=== PATIENT | male | born 1930 | race American Indian/Alaskan Native ===

== ENCOUNTER 2020-09-06 10:15 | Emergency (ER) | payer MEDICARE ==
--- NOTE | 2020-09-06 11:14 | Emergency Department Report ---
ED General Adult HPI - General Chief complaint: Sore Throat Stated complaint: CONGESTION Time Seen by Provider: 09/06/20 10:58 Source: EMS Mode of arrival: Stretcher Limitations: Altered Mental Status - History of Present Illness Initial comments: The patient presents to the emergency department from [facility] for evaluation of aspiration. Upon the patient's arrival to the emergency department I contacted care home and spoke to the patient's nurse who informed me that the patient has been switched from a regular diet to mechanical yesterday due to difficulty swallowing. They went to process of trying to get a swallow eval done when he was counseled. Patient was brought to the ED for evaluation of aspiration. Due to the patient's dementia is not able to answer questions. -: Sudden Severity scale (0 -10): 0 Consistency: constant Improves with: none Worsens with: none Associated Symptoms: denies other symptoms Treatments Prior to Arrival: none - Related Data Home Medications Medication Instructions Recorded Confirmed Last Taken Ascorbic Acid [Vitamin C] 500 mg PO DAILY 09/06/20 09/06/20 Unknown AtorvaSTATin [Lipitor] 10 mg PO QHS 09/06/20 09/06/20 Unknown Cholecalciferol Vit D3 [Vitamin D3 1,000 unit PO QDAY 09/06/20 09/06/20 Unknown 1,000 UNIT TAB] Doxycycline Hyclate [Doxycycline 100 mg PO DAILY 09/06/20 09/06/20 Unknown Hyclate TAB] Fluticasone [Flonase] 1 spray NS QDAY 09/06/20 09/06/20 Unknown QUEtiapine [SEROquel] 50 mg PO DAILY 09/06/20 09/06/20 Unknown Tamsulosin [Flomax] 0.4 mg PO QDAY 09/06/20 09/06/20 Unknown VALPROIC ACID Liq [DepaKENE Liq] 250 mg PO DAILY 09/06/20 09/06/20 Unknown Previous Rx's Medication Instructions Recorded Last Taken Type levoFLOXacin [Levofloxacin] 250 mg PO DAILY #150 solution 09/06/20 Unknown Rx Allergies Allergy/AdvReac Type Severity Reaction Status Date / Time No Known Allergies Allergy Unverified 09/06/20 10:46 ED Review of Systems ROS: Stated complaint: CONGESTION Other details as noted in HPI Comment: Unobtainable due to pts medical conditions ED Past Medical Hx - Past Medical History Hx Dementia: Yes - Social History Smoking Status: Smoker, Current Status Unknown - Medications Home Medications: Home Medications Medication Instructions Recorded Confirmed Last Taken Type Ascorbic Acid [Vitamin C] 500 mg PO DAILY 09/06/20 09/06/20 Unknown History AtorvaSTATin [Lipitor] 10 mg PO QHS 09/06/20 09/06/20 Unknown History Cholecalciferol Vit D3 [Vitamin D3 1,000 unit PO QDAY 09/06/20 09/06/20 Unknown History 1,000 UNIT TAB] Doxycycline Hyclate [Doxycycline 100 mg PO DAILY 09/06/20 09/06/20 Unknown History Hyclate TAB] Fluticasone [Flonase] 1 spray NS QDAY 09/06/20 09/06/20 Unknown History QUEtiapine [SEROquel] 50 mg PO DAILY 09/06/20 09/06/20 Unknown History Tamsulosin [Flomax] 0.4 mg PO QDAY 09/06/20 09/06/20 Unknown History VALPROIC ACID Liq [DepaKENE Liq] 250 mg PO DAILY 09/06/20 09/06/20 Unknown History levoFLOXacin [Levofloxacin] 250 mg PO DAILY #150 solution 09/06/20 Unknown Rx ED Physical Exam - General Limitations: Altered Mental Status General appearance: alert, in no apparent distress, other (Demented) - Head Head exam: Present: atraumatic, normocephalic - Eye Eye exam: Present: normal appearance - ENT ENT exam: Present: mucous membranes moist, other (The patient is producing a significant amount of secretions) - Neck Neck exam: Present: normal inspection - Respiratory Respiratory exam: Present: normal lung sounds bilaterally. Absent: respiratory distress - Cardiovascular Cardiovascular Exam: Present: regular rate, normal rhythm. Absent: systolic murmur, diastolic murmur, rubs, gallop - GI/Abdominal GI/Abdominal exam: Present: soft, normal bowel sounds. Absent: distended, tenderness - Rectal Rectal exam: Present: deferred - Extremities Exam Extremities exam: Present: normal inspection - Back Exam Back exam: Present: normal inspection - Neurological Exam Neurological exam: Present: alert - Psychiatric Psychiatric exam: Present: normal affect, normal mood - Skin Skin exam: Present: warm, dry, intact, normal color. Absent: rash ED Course Vital Signs 09/06/20 09/06/20 09/06/20 10:32 10:44 11:52 Temperature 98.2 F Pulse Rate 74 81 Respiratory 20 20 18 Rate Blood Pressure 156/89 Blood Pressure 159/90 [Left] O2 Sat by Pulse 94 98 Oximetry 09/06/20 13:03 Temperature Pulse Rate 80 Respiratory 20 Rate Blood Pressure Blood Pressure 157/82 [Left] O2 Sat by Pulse 99 Oximetry ED Medical Decision Making - Lab Data Result diagrams: 09/06/20 13:24 09/06/20 13:24 Lab Results 09/06/20 09/06/20 09/06/20 Range/Units 13:24 13:24 13:24 WBC 5.2 (4.5-11.0) K/mm3 RBC 4.75 (3.65-5.03) M/mm3 Hgb 11.8 (11.8-15.2) gm/dl Hct 37.6 (35.5-45.6) % MCV 79 L (84-94) fl MCH 25 L (28-32) pg MCHC 32 (32-34) % RDW 19.0 H (13.2-15.2) % Plt Count 85 L (140-440) K/mm3 Lymph % (Auto) 15.4 (13.4-35.0) % [place] % (Auto) 4.9 (0.0-7.3) % Eos % (Auto) 0.8 (0.0-4.3) % Baso % (Auto) 0.6 (0.0-1.8) % Lymph # (Auto) 0.8 L (1.2-5.4) K/mm3 [place] # (Auto) 0.3 (0.0-0.8) K/mm3 Eos # (Auto) 0.0 (0.0-0.4) K/mm3 Baso # (Auto) 0.0 (0.0-0.1) K/mm3 Seg Neutrophils % 78.3 H (40.0-70.0) % Seg Neutrophils # 4.1 (1.8-7.7) K/mm3 Sodium 153 H (137-145) mmol/L Potassium 3.9 (3.6-5.0) mmol/L Chloride 114.9 H (98-107) mmol/L Carbon Dioxide 32 H (22-30) mmol/L Anion Gap 10 mmol/L BUN 35 H (9-20) mg/dL Creatinine 1.4 H (0.8-1.3) mg/dL Estimated GFR 58 ml/min BUN/Creatinine Ratio 25 % Glucose 72 L (75-100) mg/dL Lactic Acid 1.50 (0.7-2.0) mmol/L Calcium 9.3 (8.4-10.2) mg/dL Total Bilirubin 0.30 (0.1-1.2) mg/dL AST 41 H (5-40) units/L ALT 37 (7-56) units/L Alkaline Phosphatase 137 H (35-129) units/L Total Protein 7.5 (6.3-8.2) g/dL Albumin 3.6 L (3.9-5) g/dL Albumin/Globulin Ratio 0.9 % - Radiology Data Radiology results: report reviewed - Medical Decision Making Lab values and imagine reviewed Critical care attestation.: If time is entered above; I have spent that time in minutes in the direct care of this critically ill patient, excluding procedure time. ED Disposition Clinical Impression: Dysphagia, Pneumonia Disposition: TO HOME OR SELFCARE Is pt being admited?: No Does the pt Need Aspirin: No Condition: Stable Instructions: Bacterial Pneumonia (ED), Dysphagia Eating Plan, Bite Size Food, Community-Acquired Pneumonia, Adult, [id number] Additional Instructions: return if worse Prescriptions: levoFLOXacin [Levofloxacin] 250 mg PO DAILY #150 solution Referrals: PRIMARY CARE, [Primary Care Provider] - 3-5 Days CHELSIE AGUILLON MD [Staff Physician] - 3-5 Days Time of Disposition: 15:15
--- NOTE | 2020-09-06 12:02 | XRay Report ---
NECK SOFT TISSUE 2 VIEW(S) INDICATION / CLINICAL INFORMATION: Evaluate for retained food bolus COMPARISON: None available. FINDINGS: EPIGLOTTIS: No significant abnormality. RETROPHARYNGEAL SOFT TISSUES: No significant abnormality. AIRWAY: No significant abnormality. RADIOPAQUE FOREIGN BODY: None. SKELETAL SYSTEM: No significant abnormality. ADDITIONAL FINDINGS: None. IMPRESSION: 1. No significant abnormality. Signer Name: Felipe Leon MD Signed: 09/06/2020 11:57 AM Workstation Name: [id number]
--- NOTE | 2020-09-06 12:23 | XRay Report ---
CHEST 1 VIEW 09/06/2020 11:14 AM INDICATION / CLINICAL INFORMATION: Aspiration. COMPARISON: None available. FINDINGS: SUPPORT DEVICES: None. HEART / MEDIASTINUM: Normal size of the cardiac silhouette with mild aortic atherosclerosis. LUNGS / PLEURA: Left basilar opacities are noted with otherwise clear lungs. No significant pleural e ffusion. No pneumothorax. ADDITIONAL FINDINGS: There are moderate degenerative changes of the shoulders. IMPRESSION: 1. Left basilar opacities could represent pneumonia given the history of aspiration. Continued radiog raphic follow-up to resolution is recommended. 2. Additional findings as above. Signer Name: Felipe Leon MD Signed: 09/06/2020 12:18 PM Workstation Name: [id number]
[2020-09-06 13:42] LABS: Basophils % (Auto) 0.6 % (0.0-1.8); Eosinophils % (Auto) 0.8 % (0.0-4.3); Hematocrit 37.6 % (35.5-45.6); Hemoglobin 11.8 gm/dl (11.8-15.2); Lymphocytes # (Auto) 0.8 K/mm3 (1.2-5.4); Lymphocytes % (Auto) 15.4 % (13.4-35.0); Mean Corpuscular HGB Conc 32 % (32-34); Mean Corpuscular Volume 79 fl (84-94); Monocytes # (Auto) 0.3 K/mm3 (0.0-0.8); Monocytes % (Auto) 4.9 % (0.0-7.3); Red Blood Count 4.75 M/mm3 (3.65-5.03)
[2020-09-06 13:49] LABS: Platelet Count 85 K/mm3 (140-440)
[2020-09-06 15:02] LABS: Albumin 3.6 g/dL (3.9-5); Calcium 9.3 mg/dL (8.4-10.2)
[2020-09-06 19:28] VITALS: BP 128/99
== END 2020-09-07 00:04 | disposition home or self-care (01) ==
LOC: ED 10:15
DX: R13.10 Dysphagia, unspecified (principal); J18.9 Pneumonia, unspecified organism; Z79.899 Other long term (current) drug therapy
CPT/HCPCS: 36415; 70360; 71045; 80053; 82140; 85025; 87040